=== PATIENT | female | born 1990 ===

== ENCOUNTER 2019-01-31 15:55 | Emergency (ER) | payer SELFPAY ==
[2019-01-31 16:12] VITALS: TEMP 98.9; O2SAT 99
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
[2019-01-31 17:54] VITALS: BP 115/72; PULSE 68; RESP 18
== END 2019-01-31 17:54 | disposition home or self-care (01) ==
LOC: C.ER 15:55
DX: F41.9 Anxiety disorder, unspecified (principal)